=== PATIENT | female | born 1975 | race Two or more races ===

== ENCOUNTER 2021-09-15 11:02 | Outpatient (CLI) | payer OTHER | END 2021-09-15 11:05 | disposition home or self-care (01) | LOC: SONOGRAMA 11:02 | PROVIDERS: ATTEND Pathology Anatomic Pathology | DX: E04.1 Nontoxic single thyroid nodule (principal) ==

== ENCOUNTER 2023-04-01 12:32 | Emergency (ER) | payer OTHER ==
[~2023-04-01] VITALS: Ht 167.6 cm; Wt 56.7 kg
[2023-04-01] MEDS ORDERED: LAMOTRIGINE200 MG PO (13:02)
== END 2023-04-01 13:45 | disposition home or self-care (01) ==
LOC: ER 12:32
DX: G40.89 Other seizures (principal)